=== PATIENT | male | born 1965 | race Caucasian/White ===

== ENCOUNTER 2021-02-20 06:08 | Day surgery (SDC) | payer OTHER ==
[~2021-02-20] VITALS: Ht 167.6 cm; Wt 102.0 kg
[2021-02-20] MEDS ORDERED: SODIUM CHLORIDE 0.9% 1,000 ML IV SCH (07:30)
[2021-02-20 07:35] VITALS: BP 152/80
[2021-02-20 08:03] LABS: INTERNATIONAL NORMALIZED RATIO 1.01 (0.93-1.1); PROTHROMBIN TIME 10.8 Seconds (9.6-11.5)
[2021-02-20] MEDS ORDERED: NALOXONE 1 MG/ML, 2ML ONE (08:25)
[2021-02-20] MEDS ORDERED: FLUMAZENIL 0.1 MG/1 ML, 5ML ONE (08:25)
[2021-02-20] MEDS ORDERED: FENTANYL PF 100 MCG/2ML ONE ×2 (08:25)
[2021-02-20] MEDS ORDERED: MIDAZOLAM 1 MG/ML, 5ML ONE (08:25)
== END 2021-02-20 10:45 | disposition home or self-care (01) ==
LOC: RAD 06:08
PROVIDERS: ATTEND Urology
DX: N28.89 Other specified disorders of kidney and ureter (principal); C64.2 Malignant neoplasm of left kidney, except renal pelvis; I12.0 Hypertensive chronic kidney disease with stage 5 chronic kidney disease or end stage renal disease; E11.22 Type 2 diabetes mellitus with diabetic chronic kidney disease; N18.5 Chronic kidney disease, stage 5; G47.30 Sleep apnea, unspecified; Z79.4 Long term (current) use of insulin; Z79.82 Long term (current) use of aspirin; Z79.899 Other long term (current) drug therapy; Z88.0 Allergy status to penicillin; Z88.8 Allergy status to other drugs, medicaments and biological substances
CPT/HCPCS: 36415; 50200; 77012; 85610; 88305; 99156; 99157; J2250; J3010; J2310